=== PATIENT | male | born 1985 | race African-American/Black ===

== ENCOUNTER 2019-08-12 14:05 | Emergency (ER) | payer OTHER ==
--- NOTE | 2019-08-12 14:08 | PDOC ---
History of Present Illness - General Chief Complaint: Pain, Acute Stated Complaint: LEFT ELBOW PAIN Time Seen by Provider: 08/12/19 14:07 History Source: Patient Exam Limitations: No Limitations - History of Present Illness Initial Comments: 08/12/19 14:29 Lew Jameson is 33y previously healthy M presenting with L elbow pain s/p fall. Yesterday at 730p, pt fell back on L lateral elbow after door opened behind him. Subsequent pain and swelling over L lateral elbow reduced w ice. No head trauma/LOC. Not on blood thinners. Pain persists this morning after sleeping on L side. Pain worse w forearm flexion and elevation. 2/10 pain at rest. Pt still has normal hand sensation/movement/strength Past History - Past Medical History Allergies/Adverse Reactions: Allergies Allergy/AdvReac Type Severity Reaction Status Date / Time No Known Allergies Allergy Verified 05/30/13 13:47 Home Medications: Ambulatory Orders Oseltamivir Phosphate [Tamiflu] 75 mg PO DAILY #7 capsule 02/21/14 - Psycho Social/Smoking Cessation Hx Smoking Status: Yes Smoking History: Former smoker Number of Cigarettes Smoked Daily: 10 If you are a former smoker, when did you quit?: 5 DAYS AGO 'Breaking Loose' booklet given: 02/21/14 Hx Alcohol Use: Yes (SOCIAL) Substance Use Type: None Review of Systems - Review of Systems Able to Perform ROS?: Yes Is the patient limited Latvian proficient: No Constitutional: No: Chills, Fever HEENTM: No: Eye Pain, Nose Pain, Hearing Loss, Throat Pain Respiratory: No: Cough, Shortness of Breath Cardiac (ROS): No: Chest Pain, Lightheadedness, Palpitations ABD/GI: No: Abdominal Distended, Constipated, Diarrhea, Nausea, Vomiting : No: Burning, Dysuria, Discharge, Frequency, Flank Pain, Hematuria Musculoskeletal: Yes: Joint Pain (elbow). No: Back Pain, Muscle Weakness Integumentary: No: Bruising, Dryness, Erythema Neurological: No: Headache, Numbness, Seizure, Tingling, Tremors Psychiatric: No: Anxiety, Depression, Stressors Endocrine: No: Excessive Sweating, Flushing, Intolerance to Cold, Intolerance to Heat Hematologic/Lymphatic: No: Anemia, Blood Clots, Easy Bleeding *Physical Exam - Physical Exam General Appearance: Yes: Nourished, Appropriately Dressed. No: Apparent Distress HEENT: positive: EOMI, ROSALINDA, Normal Voice, Hearing Grossly Normal. negative: Scleral Icterus (R), Scleral Icterus (L), Nasal Congestion, Rhinorrhea Respiratory/Chest: positive: Lungs Clear, Normal Breath Sounds. negative: Chest Tender, Respiratory Distress, Crackles, Rales, Rhonchi, Stridor, Wheezing Cardiovascular: positive: Regular Rhythm, Regular Rate, S1, S2. negative: Edema , Murmur Extremity: positive: Other (L lateral epicondyle mild tenderness w palpation, mild swelling) Integumentary: positive: Normal Color, Other (No abrasions/lacerations). negative: Rash, Bruising Neurologic: positive: lead python developer II-XII NML intact, Fully Oriented, Alert, Motor Strength 5/5, Responsive, Other (No radial/median/ulnar nerve motor deficits). negative: Numbness, Sensory Deficit, Confused, Disoriented Medical Decision Making - Medical Decision Making 08/12/19 14:37 Lew Jameson is 33y previously healthy M presenting with L lateral epicondyle pain s/p fall. Neurovascular intact. Denied head trauma/LOC. L elbow XR did not show any gross fractures/subluxation/deformity. Given an arm sling and naproxen for pain. DC home w PCP/ortho f/u, supportive care. Discharge - Discharge Information Problems reviewed: Yes Clinical Impression/Diagnosis: Elbow pain, left Condition: Good Disposition: HOME - Admission No - Follow up/Referral Referrals: Yo Wilburn DO [Staff Physician] - - Patient Discharge Instructions Patient Printed Discharge Instructions: DI for Elbow Pain Additional Instructions: You were seen for left elbow pain after a fall. Your x-ray did not show any bone fracture or dislocation. You were given an arm sling and medication for pain. Please follow up with your primary care doctor regarding your visit. You can make an appointment with the referred orthopedic Dr Wilburn if you continue to have pain. Continue to ice your elbow to help recovery and take tylenol or ibuprofen if you continue to have pain. Move your arm as tolerated. Come back to the ED if you cannot move your arm/hand, worsening pain or arm numbness. - Post Discharge Activity
[2019-08-12 14:15] VITALS: BP 131/83; PULSE 71; TEMP 98.8; BMI 32.8
--- NOTE | 2019-08-12 14:44 | PDOC ---
Attending Attestation - Resident Resident Name: Rod Curry - ED Attending Attestation I have performed the following: I have examined & evaluated the patient, The case was reviewed & discussed with the resident, I agree w/resident's findings & plan, Exceptions are as noted - HPI HPI: 08/12/19 14:38 33 M with no PMH presents to ED with L elbow pain after falling on it yesterday. Pt was leaning on a door that opened suddenly, causing him to fall onto his L elbow. Denies headstrike/LOC. Now has pain and swelling in L elbow with limitation in ROM. Denies weakness/numbness/tingling in L arm or hand. - Physicial Exam PE: 08/12/19 14:46 "GENERAL: Awake, alert, and fully oriented, in no acute distress. HEAD: No signs of trauma EYES: PERRLA, EOMI, sclera anicteric, conjunctiva clear ENT: Auricles normal inspection, hearing grossly normal, nares patent, oropharynx clear without exudates. Moist mucosa NECK: Nontender, no stepoffs, Normal ROM, supple, no lymphadenopathy, JVD, or masses LUNGS: Breath sounds equal, clear to auscultation bilaterally. No wheezes, and no crackles HEART: Regular rate and rhythm, normal S1 and S2, no murmurs, rubs or gallops ABDOMEN: Soft, nontender, normoactive bowel sounds. No guarding, no rebound. No masses EXTREMITIES: + L elbow tender over olecranon, full active and passive ROM, sensation intact distally, pulses normal NEUROLOGICAL: Cranial nerves II through XII intact. 5/5 strength and sensation in all extremities, Normal speech, normal gait, normal cerebellar function SKIN: Warm, Dry, normal turgor, no rashes or lesions noted. - Medical Decision Making 08/12/19 14:48 33 M with L elbow pain after falling yesterday. - XR L elbow - Pain control 08/12/19 16:[address] in sling and give ortho f/u Pt is well appearing, with normal vitals. Clinically stable for DC at this time. I discussed the physical exam findings, ancillary test results and final diagnoses with the patient. I answered all of the patient's questions. The patient was satisfied with the care received and felt comfortable with the discharge plan and treatment plan. The patient agrees to follow up with the primary care physician within 24-72 hours.
[2019-08-12] MEDS ORDERED: NAPROXEN 500 MG TABLET (FP) PO ONE (14:48)
[2019-08-12] MEDS ORDERED: NAPROXEN 500 MG TABLET (FP) ONE (15:05)
== END 2019-08-12 16:16 | disposition home or self-care (01) ==
LOC: FER 14:05
DX: M25.522 Pain in left elbow (principal); Z87.891 Personal history of nicotine dependence
CPT/HCPCS: 73070-TC-LT-FY; 99282-25